=== PATIENT | male | born 1990 | race Caucasian/White ===

== ENCOUNTER 2016-08-30 18:53 | Emergency (ER) | payer MEDICAID, OTHER ==
[2016-08-30 19:00] VITALS: RESP 16; TEMP 98.4
[2016-08-30] MEDS ORDERED: HYDROmorphONE/DILAUDID 1 MG/ML SYR IM ONE (19:20)
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
[2016-08-30] MEDS ORDERED: HYDROmorphONE/DILAUDID 2 MG/ML INJ ONE (19:30)
[2016-08-30 20:25] VITALS: BP 127/62; PULSE 69; O2SAT 97
== END 2016-08-30 20:25 | disposition home or self-care (01) ==
DX: S06.0X1A Concussion with loss of consciousness of 30 minutes or less, initial encounter (principal); F17.200 Nicotine dependence, unspecified, uncomplicated; V18.2XXA Unspecified pedal cyclist injured in noncollision transport accident in nontraffic accident, initial encounter
CPT/HCPCS: J1170